=== PATIENT | male | born 1965 | race Caucasian/White ===

== ENCOUNTER → 2016-05-06 | Outpatient (CLI) | payer BC ==
[~2016-05-06] MED LIST: NORCO 325 MG-51 TAB PO; ZORVOLEX18 MG PO; [UNRECOGNIZED DRUG - OTHER]
== END ==
LOC: COL.RAD 07:12
DX: M50.31 Other cervical disc degeneration, high cervical region (principal)

== ENCOUNTER 2016-06-09 18:12 | Emergency (ER) | payer BC ==
[~2016-06-09] VITALS: Ht 177.8 cm; Wt 100.0 kg
[2016-06-09 18:18] VITALS: BP 155/98; TEMP 98.2
[2016-06-09] MEDS ORDERED: [UNRECOGNIZED DRUG - OTHER] (18:22)
[2016-06-09] MEDS ORDERED: ZORVOLEX18 MG PO (18:22)
[2016-06-09] MEDS ORDERED: NORCO 325 MG-51 TAB PO (18:40)
[2016-06-09 18:53] VITALS: PULSE 105
== END 2016-06-09 18:54 | disposition home or self-care (01) ==
LOC: COL.ER 18:12
DX: M54.12 Radiculopathy, cervical region (principal)

== ENCOUNTER → 2016-06-25 | Outpatient (CLI) | payer BC | LOC: MHCPAIN 10:57 | DX: G89.29 Other chronic pain (principal); M50.90 Cervical disc disorder, unspecified, unspecified cervical region; M54.12 Radiculopathy, cervical region | CPT/HCPCS: G0463 ==

== ENCOUNTER → 2016-07-04 | Outpatient (CLI) | payer BC | LOC: MHCPAIN 10:55 | DX: M50.10 Cervical disc disorder with radiculopathy, unspecified cervical region (principal) | CPT/HCPCS: J1100; Q9967 ==

== ENCOUNTER → 2020-06-19 | Outpatient (CLI) | payer BC ==
--- NOTE | 2020-06-19 14:17 | NUR ---
Called Dr. Thornton office to call in prescription for glucose meter, lancing device, lancets, and strips. Pt's preferred pharmacy [facility].
== END ==
LOC: DIA.ED
DX: E11.9 Type 2 diabetes mellitus without complications (principal)
CPT/HCPCS: G0108